=== PATIENT | female | born 1970 | race Two or more races ===

== ENCOUNTER 2018-01-01 16:22 | Emergency (ER) | payer SELFPAY ==
[~2018-01-01] VITALS: Ht 162.6 cm; Wt 54.4 kg
[2018-01-01 16:30] VITALS: BP 132/90
[2018-01-01] MEDS ORDERED: KETOROLAC TROMETH 30 MG/ML 1ML VIAL IV ONE (19:00)
[2018-01-01] MEDS ORDERED: methylPREDNISolone SOD SUCC 125 MG/2 ML VL IV ONE (19:00)
== END 2018-01-01 21:01 | disposition home or self-care (01) ==
LOC: ER 16:22 → EDBD 16:22 → ER 21:01
DX: S93.602A Unspecified sprain of left foot, initial encounter (principal); S43.401A Unspecified sprain of right shoulder joint, initial encounter; M62.838 Other muscle spasm; V03.00XA Pedestrian on foot injured in collision with car, pick-up truck or van in nontraffic accident, initial encounter; Y93.89 Activity, other specified; Y99.8 Other external cause status; Y92.89 Other specified places as the place of occurrence of the external cause
CPT/HCPCS: 72040; 72070; 72220; 73030; 73610; 73630; 96374; 96375; 99284; J1885; J2930